=== PATIENT | female | born 1995 | race Caucasian/White ===

== ENCOUNTER 2019-03-24 23:32 | Inpatient (IN) ==
[2019-03-25] MEDS ORDERED: hydrOXYzine pamoate 25 MG CAPSULE PO PRN (01:35)
[2019-03-25] MEDS ORDERED: Mag Hydrox/Al Hydrox/Simeth 30 ML UDC PO PRN (01:35)
[2019-03-25] MEDS ORDERED: *HR* LORazepam 1 MG TABLET PO PRN (01:35)
[2019-03-25] MEDS ORDERED: MOM Conc 10 ML UD.LIQ PO PRN (01:35)
[2019-03-25] MEDS ORDERED: Haloperidol Lactate 5 MG/ML VIAL IM PRN (01:35)
[2019-03-25] MEDS ORDERED: *HR* LORazepam 2 MG/ML VIAL IM PRN (01:35)
[2019-03-25] MEDS ORDERED: Acetaminophen 325 MG TABLET PO PRN (01:35)
[2019-03-25] MEDS ORDERED: traZODone 50 MG TABLET PO PRN (01:35)
[2019-03-26 10:10] VITALS: BP 133/77
== END 2019-03-26 12:14 | disposition home or self-care (01) | DRG 885 ==
LOC: EMEROOARM 23:32 → 1ANU 23:32 → OBSVTOIN 03-25 01:32
PROVIDERS: ADMIT Psychiatry & Neurology Psychiatry; ATTEND Psychiatry & Neurology Psychiatry